=== PATIENT | female | born 1985 | race Caucasian/White ===

== ENCOUNTER → 2016-06-17 | Outpatient (CLI) | payer OTHER | LOC: FIMAGING 13:12 | PROVIDERS: ATTEND Obstetrics & Gynecology | DX: Z34.81 Encounter for supervision of other normal pregnancy, first trimester (principal); Z3A.12 12 weeks gestation of pregnancy ==

== ENCOUNTER → 2016-08-06 | Outpatient (CLI) | payer OTHER | LOC: FIMAGING 07:39 | PROVIDERS: ATTEND Obstetrics & Gynecology | DX: Z36 Encounter for antenatal screening of mother (principal); Z3A.19 19 weeks gestation of pregnancy; O26.892 Other specified pregnancy related conditions, second trimester ==

== ENCOUNTER → 2016-10-17 | Outpatient (CLI) | payer OTHER | LOC: FIMAGING 08:40 | PROVIDERS: ATTEND Obstetrics & Gynecology | DX: Z34.83 Encounter for supervision of other normal pregnancy, third trimester (principal); Z3A.29 29 weeks gestation of pregnancy ==

== ENCOUNTER 2016-12-30 18:00 | Inpatient (IN) | payer OTHER ==
[2016-12-30] MEDS ORDERED: TERBUTALINE SULFATE 1 MG/ML VIAL IV PRN (18:29)
[2016-12-30] MEDS ORDERED: OLIVE OIL 118 ML BTL MISC PRN (18:29)
[2016-12-30] MEDS ORDERED: EPSOM SALT 454 GM TP PRN (18:29)
[2016-12-30] MEDS ORDERED: LR 1,000 ML IV PRN (18:29)
[2016-12-30] MEDS ORDERED: OXYTOCIN 20 UNIT in LR 1,000 ML IV PRN (18:29)
--- NOTE | 2016-12-30 18:35 | OBPROG ---
Labor Progress Note Assessment/Plan: Assessment: cat 2 fhr contractions q 2-3 minutes exam / cephalic active labor srom clear fluid before admit 1720 gbs negative requesting epidural for pain relief elevated bp dtrs 3+bilaterally no clonus Plan:epidural for pain relief. admit for labor 12/30/16 18:31 12/30/16 18:36 Subjective/Intrapartum Course: 12/30/16 18:31 Feeling contractions irregularly. ROM 1720 clear fluid. Exam cephalic. - SVE Dilation (cm): 7 Effacement (%): 80 Station: -1 Membranes: SROM Amniotic Fluid Color: Clear - Contraction Pattern Assessment Current Contraction Pattern: Regular - FHR Assessment Verduzco FHR (bpm): 150 FHR Pattern Variability: Moderate FHR Category: 2 - AP Antepartum Course: transfer of care at 27 weeks. GBS negative. previa that has resolved. 12/30/16 18:33 Feeling contractions now. SROM clear fluid 1720. Feeling regular contractions now after rom. - Physical Exam General Appearance: WD/WN, alert, no apparent distress Respiratory: chest non-tender, lungs clear, normal breath sounds Cardiac/Chest: regular rate, rhythm Abdomen: normal bowel sounds Extremities: normal range of motion, Tabitha's sign (negative bilaterally) DTR- Lower Extremities: Knee (R): 3+, Knee (L): 3+ (no clonus) Skin: normal color, warm/dry Neuro/Psych: no motor/sensory deficits, alert, normal mood/affect, oriented x 3 ICD10 Worksheet Patient Problems: Problems Problem Status Onset term srom labor Acute
[2016-12-30] MEDS ORDERED: LIDOCAINE 1% 300 MG/30 ML SDV ONE (18:39)
[2016-12-30] MEDS ORDERED: OLIVE OIL 118 ML BTL ONE (18:39)
[2016-12-30] MEDS ORDERED: AMMONIA AROMATIC 1 EACH AMP IH ONE (18:39)
[2016-12-30] MEDS ORDERED: TERBUTALINE SULFATE 1 MG/ML VIAL ONE (18:39)
[2016-12-30] MEDS ORDERED: OXYTOCIN 10 UNIT/ML VIAL ONE (18:40)
[2016-12-30] MEDS ORDERED: MISOPROSTOL 200 MCG TAB ONE (18:40)
[2016-12-30 18:50] LABS: PLATELET COUNT 256 10^3/uL (150-400)
[2016-12-30] MEDS ORDERED: fentaNYL 2MCG/ML/BUP 0.1% RTU 100 ML BAG EP ONE (19:12)
[2016-12-30] MEDS ORDERED: PHENYLEPHRINE HCL 100 MCG/ML SYR ONE (19:12)
--- NOTE | 2016-12-30 19:15 | GHP ---
[f rep st] HISTORY AND PHYSICAL DATE OF ADMISSION: 12/30/2016 HISTORY OF PRESENT ILLNESS: Patient is a 2, para 1, 31-year-old, with an EDC of 12/27/2016, with a gestational age of 40 and 3/7 weeks, who comes in with complaint of irregular contractions and then spontaneous rupture of membranes at 1720 with clear fluid. PLAN: Admit. Patient is 7 cm, 80% effaced, -1 station. Cephalic presentation. The patient [place] of care at 27 and 6/[place] [facility] [place]ST MEDICAL HISTORY: Benign. Previous history of viral meningitis. History of a cold sore in 2014 . PAST SURGICAL HISTORY: [place] teeth. Right shoulder nevus. History of a stress fracture of the rig ht ankle in 2010. PREVIOUS HISTORY: In 2014, a male at 6 pounds 14 ounces, 38 weeks, 8 hours of labor, vagin al delivery, epidural, avulsed cord, history of PUPPS with that , delivered at [facility], son with hypospadias. PRESENT HISTORY: Previa at 19 weeks, which has since resolved. SOCIAL HISTORY: Patient is . Denies tobacco history. Denies drug history. GYNECOLOGICAL HISTORY: Previous OCP use. Abnormal Pap in 2006 with a colposcopy. Re-paps since hav e all been negative. REVIEW OF SYSTEMS: Times 8 is benign. PHYSICAL EXAMINATION: GENERAL: Patient is awake, alert, oriented x3. LUNGS: Clear bilaterally. A BDOMEN: Bowel sounds are positive in all 4 quadrants. EXTREMITIES: DTRs are 3+ bilaterally with no clonus. Homans sign is negative bilaterally. Denies PIH symptoms. LABORATORY DATA: Patient is O positive, antibody negative, RPR is nonreactive, rubella is immune. H epatitis is negative. HIV is negative. Trio screen cystic fibrosis was negative. Varicella was neg ative. Pap gonorrhea and chlamydia were negative. AFP single was negative. Innatal was negative. One-hour GTT was within normal limits. Patient has not been anemic with the . PLAN OF CARE: 1. GBS negative. 2. Epidural for pain relief at patient's request. 3. Expectant management of labor. 4. Consult Dr. Elizabeth William on plan of care. /[id number]/MODL
--- NOTE | 2016-12-30 19:15 | GHP ---
[f rep st] HISTORY AND PHYSICAL DATE OF ADMISSION: 12/30/2016 HISTORY OF PRESENT ILLNESS: Patient is a 2, para 1, 31-year-old, with an EDC of 12/27/2016, with a gestational age of 40 and 3/7 weeks, who comes in with complaint of irregular contractions and then spontaneous rupture of membranes at 1720 with clear fluid. PLAN: Admit. Patient is 7 cm, 80% effaced, -1 station. Cephalic presentation. The patient is a transfer of care at 27 and 6/7 weeks [place] [facility] [place] PAST MEDICAL HISTORY: Benign. Previous history of viral meningitis. History of a cold sore in 2014 . PAST SURGICAL HISTORY: [place] teeth. Right shoulder nevus. History of a stress fracture of the rig ht ankle in 2010. PREVIOUS HISTORY: In 2014, a male at 6 pounds 14 ounces, 38 weeks, 8 hours of labor, vagin al delivery, epidural, avulsed cord, history of PUPPS with that , delivered at [facility], son with hypospadias. PRESENT HISTORY: Previa at 19 weeks, which has since resolved. SOCIAL HISTORY: Patient is . Denies tobacco history. Denies drug history. GYNECOLOGICAL HISTORY: Previous OCP use. Abnormal Pap in 2006 with a colposcopy. Re-paps since hav e all been negative. REVIEW OF SYSTEMS: Times 8 is benign. PHYSICAL EXAMINATION: GENERAL: Patient is awake, alert, oriented x3. LUNGS: Clear bilaterally. A BDOMEN: Bowel sounds are positive in all 4 quadrants. EXTREMITIES: DTRs are 3+ bilaterally with no clonus. Homans sign is negative bilaterally. Denies PIH symptoms. LABORATORY DATA: Patient is O positive, antibody negative, RPR is nonreactive, rubella is immune. H epatitis is negative. HIV is negative. Trio screen cystic fibrosis was negative. Varicella was neg ative. Pap gonorrhea and chlamydia were negative. AFP single was negative. Innatal was negative. One-hour GTT was within normal limits. Patient has not been anemic with the . PLAN OF CARE: 1. GBS negative. 2. Epidural for pain relief at patient's request. 3. Expectant management of labor. 4. Consult Dr. Elizabeth William on plan of care. /[id number]/MODL
[2016-12-30] MEDS ORDERED: PHENYLEPHRINE HCL 100 MCG/ML SYR IVP PRN (19:43)
--- NOTE | 2016-12-30 19:43 | PREANESOB ---
Obstetric Pre-Anesthesia Info - General Info Proposed Procedure: STIVEN - Info Status: Full Term, Verduzco Monitors: External FHR Pattern: Reassuring - Labor Status Cervical Dilation per last OB SVE: 7 Station per last OB SVE: -1 Amniotic Fluid Color: Clear PIH: No Magnesium Sulfate in Use: No Indications for Labor Analgesia: Pain Control Labor Epidural: Proposed Anesthesia Allergies/Adverse Reactions: Allergy/AdvReac Type Severity Reaction Status Date / Time No Known Allergies Allergy Unverified 12/30/16 18:29 Visit Medications: Generic Name Dose Route Start Last Admin Trade Name Frejamie PRN Reason Stop Dose Admin Lactated Ringer's 1,000 mls @ 0 mls/hr 12/30/16 18:29 Lr IV 06/28/17 18:28 PRN PRN SEE PROTOCOL CONDITIONS Protocol Per Protocol Oxytocin 20 unit/ Lactated 1,002 mls @ 150 mls/hr 12/30/16 18:29 Ringer's IV PRN PRN Post- bleeding Ibuprofen 600 mg 12/30/16 18:29 Motrin PO 06/28/17 18:28 Q6HRS PRN post , inflammation Magnesium Sulfate 454 gm 12/30/16 18:29 Epsom Salt TP 06/28/17 18:28 Q1H PRN perineal discomfort [place] Oil 118 ml 12/30/16 18:29 Sweet Oil MISC 06/28/17 18:28 ONCE PRN perineal massage Terbutaline Sulfate 0.25 mg 12/30/16 18:29 Brethine IV 06/28/17 18:28 ONCE PRN Tachysystole Discontinued Medications Generic Name Dose Route Start Last Admin Trade Name Domonique PRN Reason Stop Dose Admin Ammonia (Aromatic Spirit) Confirm 12/30/16 18:39 Ammonia Aromatic Administered 12/30/16 18:40 Dose 1 each IH .STK-MED ONE Fentanyl/Bupivacaine HCl Confirm 12/30/16 19:12 Fentanyl/Bupivacaine/Ns 2 Mcg/Ml 0.1% (Premix Administered 12/30/16 19:13 Dose 100 ml EP .STK-MED ONE Lidocaine HCl Confirm 12/30/16 18:39 Lidocaine Hcl 1% Administered 12/30/16 18:40 Dose 300 mg .ROUTE .STK-MED ONE Misoprostol Confirm 12/30/16 18:40 Cytotec Administered 12/30/16 18:41 Dose 800 mcg .ROUTE .STK-MED ONE [place] Oil Confirm 12/30/16 18:39 Sweet Oil Administered 12/30/16 18:40 Dose 118 ml .ROUTE .STK-MED ONE Oxytocin Confirm 12/30/16 18:40 Pitocin Administered 12/30/16 18:41 Dose 40 unit .ROUTE .STK-MED ONE Phenylephrine HCl Confirm 12/30/16 19:12 Neosynephrine Administered 12/30/16 19:13 Dose 1,000 mcg .ROUTE .STK-MED ONE Terbutaline Sulfate Confirm 12/30/16 18:39 Brethine Administered 12/30/16 18:40 Dose 1 mg .ROUTE .STK-MED ONE Labs: 12/30/16 18:40 12/30/16 18:40 Patient ABO/Rh O POSITIVE 12/30/16 18:40 Uric Acid 5.8 mg/dL (2.5-6.8) 12/30/16 18:40 Total Bilirubin 0.3 mg/dL (0.1-1.4) 12/30/16 18:40 Conjugated Bilirubin 0.1 mg/dL (0.0-0.5) 12/30/16 18:40 Unconjugated Bilirubin 0.2 mg/dL (0.0-1.1) 12/30/16 18:40 AST 31 IU/L (14-46) 12/30/16 18:40 ALT 39 IU/L (9-52) 12/30/16 18:40 Lactate Dehydrogenase 472 IU/L (313-618) 12/30/16 18:40
--- NOTE | 2016-12-30 19:56 | OBPROG ---
Labor Progress Note Assessment/Plan: Assessment: cat 2 fhr contractions q 2-3 minutes exam 7/100/-1 cephalic/ thinned cervix minimal change in exam active labor srom clear fluid before admit 1720 gbs negative epidural in place for pain relief, denies pain after placement elevated bp pih labs wnl Plan:expectant management of labor. continue epidural for pain relief 12/30/16 18:31 12/30/16 18:36 12/30/16 19:54 Subjective/Intrapartum Course: 12/30/16 18:31 Feeling contractions irregularly. ROM 1720 clear fluid. Exam 80/-1 cephalic. 12/30/16 19:53 Feeling better after the epidural. Denies pain. Continuing to leak clear fluid vaginally Objective: 12/30/16 18:40 12/30/16 18:40 Patient ABO/Rh O POSITIVE 12/30/16 18:40 Uric Acid 5.8 mg/dL (2.5-6.8) 12/30/16 18:40 Total Bilirubin 0.3 mg/dL (0.1-1.4) 12/30/16 18:40 Conjugated Bilirubin 0.1 mg/dL (0.0-0.5) 12/30/16 18:40 Unconjugated Bilirubin 0.2 mg/dL (0.0-1.1) 12/30/16 18:40 AST 31 IU/L (14-46) 12/30/16 18:40 ALT 39 IU/L (9-52) 12/30/16 18:40 Lactate Dehydrogenase 472 IU/L (313-618) 12/30/16 18:40 - SVE Dilation (cm): 7 Effacement (%): 100 Station: -1 Membranes: SROM Amniotic Fluid Color: Clear - Contraction Pattern Assessment Current Contraction Pattern: Regular - AP Antepartum Course: transfer of care at 27 weeks. GBS negative. previa that has resolved. 12/30/16 18:33 Feeling contractions now. SROM clear fluid 1720. Feeling regular contractions now after rom. Oxytocin Orders Assessment - Pre-Induction/Augmentation Assessment Gestational Age: 40 week(s) and 3 day(s) ICD10 Worksheet Patient Problems: Problems Problem Status Onset term srom labor Acute
--- NOTE | 2016-12-30 19:58 | POSTANESTH ---
Post Anesthetic Evaluation Cardiovascular Status: Normal, Stable, Similar to Pre-Op Cond Respiratory Status: Normal, Stable, Similar to Pre-op Cond. Level of Consciousness/Mental Status: Can Participate in Eval, Alert and Oriented Pain Control: Adequate, Prn Tx Ordered Nausea/Vomiting Control: Adequate, Prn Tx Ordered Complications Possibly Related to Anesthesia: None Noted (Excellent analgesia.)
[2016-12-30] MEDS ORDERED: LR 500 ML IV SCH (20:00)
[2016-12-30] MEDS ORDERED: fentaNYL 2MCG/ML/BUP 0.1% RTU 100 ML EP SCH (20:00)
--- NOTE | 2016-12-30 22:05 | OBPROG ---
Labor Progress Note Assessment/Plan: Assessment: cat 2 fhr contractions q 2-3 minutes exam 100/-1 cephalic/ thinned cervix minimal change in exam active labor srom clear fluid before admit 1720 gbs negative epidural in place for pain relief, denies pain after placement iupc placed minimal change in exam per nurse exam Plan:evaluate strength of contractions with iupc need for pitocin possible to assist with strength of the contractions 12/30/16 18:31 12/30/16 18:36 12/30/16 19:54 12/30/16 22:03 Subjective/Intrapartum Course: 12/30/16 18:31 Feeling contractions irregularly. ROM 1720 clear fluid. Exam /-1 cephalic. 12/30/16 19:53 Feeling better after the epidural. Denies pain. Continuing to leak clear fluid vaginally 12/30/16 22:05 Comfortable with epidural. Objective: 12/30/16 18:40 12/30/16 18:40 Patient ABO/Rh O POSITIVE 12/30/16 18:40 Uric Acid 5.8 mg/dL (2.5-6.8) 12/30/16 18:40 Total Bilirubin 0.3 mg/dL (0.1-1.4) 12/30/16 18:40 Conjugated Bilirubin 0.1 mg/dL (0.0-0.5) 12/30/16 18:40 Unconjugated Bilirubin 0.2 mg/dL (0.0-1.1) 12/30/16 18:40 AST 31 IU/L (14-46) 12/30/16 18:40 ALT 39 IU/L (9-52) 12/30/16 18:40 Lactate Dehydrogenase 472 IU/L (313-618) 12/30/16 18:40 - SVE Dilation (cm): 7 Effacement (%): 100 Station: -1 Membranes: SROM Amniotic Fluid Color: Clear - Contraction Pattern Assessment Current Contraction Pattern: Regular - FHR Assessment Verduzco FHR (bpm): 135 FHR Pattern Variability: Moderate FHR Category: 2 - AP Antepartum Course: transfer of care at 27 weeks. GBS negative. previa that has resolved. 12/30/16 18:33 Feeling contractions now. SROM clear fluid 1720. Feeling regular contractions now after rom. Oxytocin Orders Assessment - Pre-Induction/Augmentation Assessment Gestational Age: 40 week(s) and 3 day(s) ICD10 Worksheet Patient Problems: Problems Problem Status Onset term srom labor Acute
[2016-12-30] MEDS ORDERED: OXYTOCIN 30 UNITS in LR 500 ML IV SCH (22:30)
--- NOTE | 2016-12-30 23:53 | OBPROG ---
Labor Progress Note Assessment/Plan: Assessment: cat 2 fhr variables pitocin off change in position from sitting to side lying to right side with peanut in plce to assist with descent of head tachysystole with pitocin/ pitocin off exam ant lip/100/0 cephalic good change in cervix transition continued clear fluid gbs negative good relief with epidural inadequete contractions however good change in cervical dilation Plan:expectant management of labor recheck with pressure 12/30/16 18:31 12/30/16 18:36 12/30/16 19:54 12/30/16 22:03 12/30/16 23:50 Subjective/Intrapartum Course: 12/30/16 18:31 Feeling contractions irregularly. ROM 1720 clear fluid. Exam /-1 cephalic. 12/30/16 19:53 Feeling better after the epidural. Denies pain. Continuing to leak clear fluid vaginally 12/30/16 22:05 Comfortable with epidural. 12/30/16 23:50 Comfortable denies pain Objective: 12/30/16 18:40 12/30/16 18:40 Patient ABO/Rh O POSITIVE 12/30/16 18:40 Uric Acid 5.8 mg/dL (2.5-6.8) 12/30/16 18:40 Total Bilirubin 0.3 mg/dL (0.1-1.4) 12/30/16 18:40 Conjugated Bilirubin 0.1 mg/dL (0.0-0.5) 12/30/16 18:40 Unconjugated Bilirubin 0.2 mg/dL (0.0-1.1) 12/30/16 18:40 AST 31 IU/L (14-46) 12/30/16 18:40 ALT 39 IU/L (9-52) 12/30/16 18:40 Lactate Dehydrogenase 472 IU/L (313-618) 12/30/16 18:40 - SVE Dilation (cm): 9 Effacement (%): 100 Station: 0 Membranes: SROM Amniotic Fluid Color: Clear - Contraction Pattern Assessment Current Contraction Pattern: Regular - FHR Assessment Verduzco FHR (bpm): 120 FHR Pattern Variability: Moderate FHR Category: 2 - AP Antepartum Course: transfer of care at 27 weeks. GBS negative. previa that has resolved. 12/30/16 18:33 Feeling contractions now. SROM clear fluid 1720. Feeling regular contractions now after rom. Oxytocin Orders Assessment - Pre-Induction/Augmentation Assessment Gestational Age: 40 week(s) and 3 day(s) ICD10 Worksheet Patient Problems: Problems Problem Status Onset term srom labor Acute
--- NOTE | 2016-12-31 01:21 | OBPROG ---
Labor Progress Note Assessment/Plan: Assessment: cat 2 fhr exam ant lip/100/0/ +1 cephalic OP transition continued clear fluid + bloody show gbs negative feeling pain in patients left side q2 minute contractions hands and knees to assist with rotation and descent of head Plan:expectant management of labor recheck with pressure 12/30/16 18:31 12/30/16 18:36 12/30/16 19:54 12/30/16 22:03 12/30/16 23:50 12/31/16 01:17 Subjective/Intrapartum Course: 12/30/16 18:31 Feeling contractions irregularly. ROM 1720 clear fluid. Exam /-1 cephalic. 12/30/16 19:53 Feeling better after the epidural. Denies pain. Continuing to leak clear fluid vaginally 12/30/16 22:05 Comfortable with epidural. 12/30/16 23:50 Comfortable denies pain 12/31/16 01:19 Feeling pain with the epidural now./rotated to hands and knees to assist with pain relief, rotation and descent. Patient felt better in this position Objective: 12/30/16 18:40 12/30/16 18:40 Patient ABO/Rh O POSITIVE 12/30/16 18:40 Uric Acid 5.8 mg/dL (2.5-6.8) 12/30/16 18:40 Total Bilirubin 0.3 mg/dL (0.1-1.4) 12/30/16 18:40 Conjugated Bilirubin 0.1 mg/dL (0.0-0.5) 12/30/16 18:40 Unconjugated Bilirubin 0.2 mg/dL (0.0-1.1) 12/30/16 18:40 AST 31 IU/L (14-46) 12/30/16 18:40 ALT 39 IU/L (9-52) 12/30/16 18:40 Lactate Dehydrogenase 472 IU/L (313-618) 12/30/16 18:40 - SVE Dilation (cm): 9 Effacement (%): 100 Station: 0, +1 Membranes: SROM Amniotic Fluid Color: Clear - Contraction Pattern Assessment Current Contraction Pattern: Regular - FHR Assessment Verduzco FHR (bpm): 135 FHR Pattern Variability: Moderate FHR Category: 2 - AP Antepartum Course: transfer of care at 27 weeks. GBS negative. previa that has resolved. 12/30/16 18:33 Feeling contractions now. SROM clear fluid 1720. Feeling regular contractions now after rom. Oxytocin Orders Assessment - Pre-Induction/Augmentation Assessment Gestational Age: 40 week(s) and 3 day(s) ICD10 Worksheet Patient Problems: Problems Problem Status Onset term srom labor Acute
[2016-12-31] MEDS ORDERED: ACETAMINOPHEN 500 MG TAB PO ONE (01:56)
--- NOTE | 2016-12-31 01:56 | OBPROG ---
Labor Progress Note Assessment/Plan: Assessment: cat 2 fhr exam ant lip/100/0/ +1 cephalic OP transition + bloody show gbs negative feeling pain in patients left side q2 minute contractions rotated to bibi position attempt to push variables with pushing minimal descent pitocin to 1 mu temp 100.7 will give tylenol 1 g po early decelerations noted Plan:expectant management of labor 12/30/16 18:31 12/30/16 18:36 12/30/16 19:54 12/30/16 22:03 12/30/16 23:50 12/31/16 01:17 12/31/16 01:53 12/31/16 01:56 Subjective/Intrapartum Course: 12/30/16 18:31 Feeling contractions irregularly. ROM 1720 clear fluid. Exam /-1 cephalic. 12/30/16 19:53 Feeling better after the epidural. Denies pain. Continuing to leak clear fluid vaginally 12/30/16 22:05 Comfortable with epidural. 12/30/16 23:50 Comfortable denies pain 12/31/16 01:19 Feeling pain with the epidural now./rotated to hands and knees to assist with pain relief, rotation and descent. Patient felt better in this position 12/31/16 01:55 continued feeling of pressure pain on left lower abdomen Objective: 12/30/16 18:40 12/30/16 18:40 Patient ABO/Rh O POSITIVE 12/30/16 18:40 Uric Acid 5.8 mg/dL (2.5-6.8) 12/30/16 18:40 Total Bilirubin 0.3 mg/dL (0.1-1.4) 12/30/16 18:40 Conjugated Bilirubin 0.1 mg/dL (0.0-0.5) 12/30/16 18:40 Unconjugated Bilirubin 0.2 mg/dL (0.0-1.1) 12/30/16 18:40 AST 31 IU/L (14-46) 12/30/16 18:40 ALT 39 IU/L (9-52) 12/30/16 18:40 Lactate Dehydrogenase 472 IU/L (313-618) 12/30/16 18:40 - SVE Membranes: SROM Amniotic Fluid Color: Clear - Contraction Pattern Assessment Current Contraction Pattern: Regular - FHR Assessment Verduzco FHR (bpm): 135 FHR Pattern Variability: Moderate FHR Category: 2 - AP Antepartum Course: transfer of care at 27 weeks. GBS negative. previa that has resolved. 12/30/16 18:33 Feeling contractions now. SROM clear fluid 1720. Feeling regular contractions now after rom. Oxytocin Orders Assessment - Pre-Induction/Augmentation Assessment Gestational Age: 40 week(s) and 3 day(s) ICD10 Worksheet Patient Problems: Problems Problem Status Onset term srom labor Acute
--- NOTE | 2016-12-31 02:23 | OBPROG ---
Labor Progress Note Assessment/Plan: Assessment: cat 2 fhr exam /+1 hands and knees laboring down + bloody show gbs negative feeling pain in patients left side q2 minute contractions pitocin to 1 mu temp 100.7 will give tylenol 1 g po pain on left side with epidural Plan:expectant management of labor 12/30/16 18:31 12/30/16 18:36 12/30/16 19:54 12/30/16 22:03 12/30/16 23:50 12/31/16 01:17 12/31/16 01:53 12/31/16 01:56 12/31/16 02:21 Subjective/Intrapartum Course: 12/30/16 18:31 Feeling contractions irregularly. ROM 1720 clear fluid. Exam /-1 cephalic. 12/30/16 19:53 Feeling better after the epidural. Denies pain. Continuing to leak clear fluid vaginally 12/30/16 22:05 Comfortable with epidural. 12/30/16 23:50 Comfortable denies pain 12/31/16 01:19 Feeling pain with the epidural now./rotated to hands and knees to assist with pain relief, rotation and descent. Patient felt better in this position 12/31/16 01:55 continued feeling of pressure pain on left lower abdomen 12/31/16 02:22 Doing well in hands and knees position, cat 2 fhr Objective: 12/30/16 18:40 12/30/16 18:40 Patient ABO/Rh O POSITIVE 12/30/16 18:40 Uric Acid 5.8 mg/dL (2.5-6.8) 12/30/16 18:40 Total Bilirubin 0.3 mg/dL (0.1-1.4) 12/30/16 18:40 Conjugated Bilirubin 0.1 mg/dL (0.0-0.5) 12/30/16 18:40 Unconjugated Bilirubin 0.2 mg/dL (0.0-1.1) 12/30/16 18:40 AST 31 IU/L (14-46) 12/30/16 18:40 ALT 39 IU/L (9-52) 12/30/16 18:40 Lactate Dehydrogenase 472 IU/L (313-618) 12/30/16 18:40 - SVE Membranes: SROM Amniotic Fluid Color: Clear - Contraction Pattern Assessment Current Contraction Pattern: Regular - FHR Assessment Verduzco FHR (bpm): 135 FHR Pattern Variability: Moderate FHR Category: 2 - AP Antepartum Course: transfer of care at 27 weeks. GBS negative. previa that has resolved. 12/30/16 18:33 Feeling contractions now. SROM clear fluid 1720. Feeling regular contractions now after rom. Oxytocin Orders Assessment - Pre-Induction/Augmentation Assessment Gestational Age: 40 week(s) and 3 day(s) ICD10 Worksheet Patient Problems: Problems Problem Status Onset term srom labor Acute
--- NOTE | 2016-12-31 04:30 | OBDEL ---
Info Type: Vaginal Presentation at Delivery: Vertex L&D Analgesia/Anesthesia Type: Epidural GBS+: No Intrapartum Medications: Discontinued Medications Generic Name Dose Route Start Last Admin Trade Name Domonique PRN Reason Stop Dose Admin Acetaminophen 1,000 mg 12/31/16 01:56 12/31/16 01:59 Tylenol PO 12/31/16 01:57 1,000 mg ONCE ONE Administration - Hospital Course Intrapartum: 12/30/16 18:31 Feeling contractions irregularly. ROM 1720 clear fluid. Exam /-1 cephalic. 12/30/16 19:53 Feeling better after the epidural. Denies pain. Continuing to leak clear fluid vaginally 12/30/16 22:05 Comfortable with epidural. 12/30/16 23:50 Comfortable denies pain 12/31/16 01:19 Feeling pain with the epidural now./rotated to hands and knees to assist with pain relief, rotation and descent. Patient felt better in this position 12/31/16 01:55 continued feeling of pressure pain on left lower abdomen 12/31/16 02:22 Doing well in hands and knees position, cat 2 fhr Indications for Delivery: Spontaneous Labor, SROM Vaginal Delivery - Delivery Provider Delivery Physician/CNM: Frieda Ontiveros Proctoring Provider: Elizabeth William - Labor and Delivery Onset of Contractions Date: 12/30/16 Onset of Contractions Time: 17:30 Onset of Contractions Type: Augmented Rupture of Membranes Date: 12/30/16 Rupture of Membranes Time: 17:20 Amniotic Fluid Color: Clear Dilation Complete Date: 12/31/16 Dilation Complete Time: 02:20 Placenta Delivery Date: 12/31/16 Placenta Delivery Time: 04:17 Total Hours of Labor: 10 Laceration: 2nd Degree Repair: 3-0, Vicryl Vaginal Sponge Count Correct: Yes Vaginal Needle Count Correct: Yes Vaginal Sweep Performed: No EBL: 400 Delivery Events: Nuchal Cord, Shoulder Dystocia - Medications Labor Augmentation/Induction Methods Used: Pitocin Labor Augmentation/Induction Indication: Contraction Strength Inadequate [place] Data Verduzco Delivery Date: 12/31/16 Delivery Time: 03:54 ABBIE: 12/27/16 Gestational Age: 40 week(s) and 4 day(s) Sex of Infant: Male Score (1 Min): 8 Score (5 Min): 9 Shoulder Dystocia Time Head Delivered: 03:53 Time Body Delivered: 03:54 1st Maneuver Attempted Maneuvers: Aileen 2nd Maneuver Attempted Maneuvers: Dixon's Maneuver 3rd Maneuver Attempted Maneuvers: Suprapubic Pressure ICD10 Worksheet Patient Problems: Problems Problem Status Onset term srom labor Acute
[2016-12-31] MEDS ORDERED: SIMETHICONE 80 MG TAB CHEW PO PRN (04:32)
[2016-12-31] MEDS ORDERED: HYDROCODONE/APAP 5/325 TAB PO PRN (04:32)
[2016-12-31] MEDS ORDERED: HYDROCORTISONE 0.5% CREAM TP PRN (04:32)
[2016-12-31] MEDS ORDERED: ACETAMINOPHEN 325 MG TAB PO PRN (04:32)
--- NOTE | 2016-12-31 04:36 | OBGCSDC ---
General Delivery Information - General Info : 2 Para: 1 Abortions: 0 Type: Vaginal L&D Analgesia/Anesthesia Type: Epidural Admission Date: 12/30/16 Labs: Patient ABO/Rh O POSITIVE 12/30/16 18:40 Hct 35.9 % (38.0-47.0) L 12/30/16 18:40 - Hospital Course Antepartum: transfer of care at 27 weeks. GBS negative. previa that has resolved. 12/30/16 18:33 Feeling contractions now. SROM clear fluid 1720. Feeling regular contractions now after rom. Intrapartum: ga 40/4 spontaneous labor srom clear fluid augmentation with pitocin op to oa epidural for pain relief. vaginal laceration 2 degree perineal laceration 400cc ebl with assistance 12/30/16 18:31 Feeling contractions irregularly. ROM 1720 clear fluid. Exam 780/-1 cephalic. 12/30/16 19:53 Feeling better after the epidural. Denies pain. Continuing to leak clear fluid vaginally 12/30/16 22:05 Comfortable with epidural. 12/30/16 23:50 Comfortable denies pain 12/31/16 01:19 Feeling pain with the epidural now./rotated to hands and knees to assist with pain relief, rotation and descent. Patient felt better in this position 12/31/16 01:55 continued feeling of pressure pain on left lower abdomen 12/31/16 02:22 Doing well in hands and knees position, cat 2 fhr 12/31/16 04:34 Vaginal - Delivery Provider Delivery Physician/CNM: Frieda Ontiveros - Diagnosis Labor: Augmented Amniotic Fluid Color: Clear Laceration: 2nd Degree Repair: 3-0, Vicryl Delivery Events: Nuchal Cord, Shoulder Dystocia - Delivery EBL: 400 Data [employer] Delivery Date: 12/31/16 Delivery Time: 03:54 ABBIE: 12/27/16 Gestational Age: 40 week(s) and 4 day(s) Sex of : Male Score (1 Min): 8 Score (5 Min): 9
[2016-12-31] MEDS: IBUPROFEN 600 MG TAB PO PRN ×3 (05:37→18:09)
[2016-12-31] MEDS: DOCUSATE SODIUM 100 MG CAP PO PRN (10:15)
--- NOTE | 2016-12-31 10:16 | OBPP ---
Progress Note Assessment/Plan: Assessment: 31 y/o PPD 0 s/p doing well. Plan: Bifera QD secondary to mild anemia. support, baby is Ramila positive. Routine PPC. 12/31/16 10:15 Subjective/ Course: 12/31/16 10:13 Pt is doing well today. She has min perineal pain and cramping controlled with Ibuprofen. Min lochia, ambulating and voiding without difficulty and has min lochia. Baby is doing well, has a good latch. Objective: 12/30/16 18:40 12/30/16 18:40 Patient ABO/Rh O POSITIVE 12/30/16 18:40 Uric Acid 5.8 mg/dL (2.5-6.8) 12/30/16 18:40 Total Bilirubin 0.3 mg/dL (0.1-1.4) 12/30/16 18:40 Conjugated Bilirubin 0.1 mg/dL (0.0-0.5) 12/30/16 18:40 Unconjugated Bilirubin 0.2 mg/dL (0.0-1.1) 12/30/16 18:40 AST 31 IU/L (14-46) 12/30/16 18:40 ALT 39 IU/L (9-52) 12/30/16 18:40 Lactate Dehydrogenase 472 IU/L (313-618) 12/30/16 18:40 Temp Pulse Resp BP Pulse Ox 36.1 C 86 20 116/68 96 12/31/16 08:00 12/31/16 08:00 12/31/16 08:00 12/31/16 08:00 12/31/16 08:00 Uterine Position/Fundal Height: Umbilicus -2 Uterine Tone: Firm Physical Exam - Physical Exam Neck: non-tender, full range of motion, supple Respiratory: chest non-tender, lungs clear, normal breath sounds Cardiac/Chest: regular rate, rhythm Abdomen: normal bowel sounds Extremities: swelling (no), Tabitha's sign (neg)
[2016-12-31] MEDS: IRON POLYSAC/IRON HEME 28 MG TAB PO SCH (11:06)
[2016-12-31 20:05] VITALS: RESP 18
[2017-01-01] MEDS: IBUPROFEN 600 MG TAB PO PRN ×2 (04:07→10:55)
[2017-01-01 08:25] VITALS: BP 125/76; PULSE 96; TEMP 97.3; O2SAT 96
[2017-01-01] MEDS: IRON POLYSAC/IRON HEME 28 MG TAB PO SCH (08:33)
[2017-01-01] MEDS: DOCUSATE SODIUM 100 MG CAP PO PRN (10:55)
--- NOTE | 2017-01-01 12:59 | OBPP ---
Progress Note Assessment/Plan: Assessment: 31 yo WF PPD#1 s/p . Desires DC home today. Plan: Discharge home. 01/01/17 12:56 Subjective/ Course: 12/31/16 10:13 Pt is doing well today. She has min perineal pain and cramping controlled with Ibuprofen. Min lochia, ambulating and voiding without difficulty and has min lochia. Baby is doing well, has a good latch. 01/01/17 12:57 Patient is doing well. Reports minimal lochia. . Voiding without difficulty. Denies significant pain or faintness or weakness. Desires DC home today if possible. Exam: NAD Lungs Clear Abdomen soft FF and below umbilicus Extremities: no excessive edema Objective: 01/01/17 04:10 12/30/16 18:40 Patient ABO/Rh O POSITIVE 12/30/16 18:40 Uric Acid 5.8 mg/dL (2.5-6.8) 12/30/16 18:40 Total Bilirubin 0.3 mg/dL (0.1-1.4) 12/30/16 18:40 Conjugated Bilirubin 0.1 mg/dL (0.0-0.5) 12/30/16 18:40 Unconjugated Bilirubin 0.2 mg/dL (0.0-1.1) 12/30/16 18:40 AST 31 IU/L (14-46) 12/30/16 18:40 ALT 39 IU/L (9-52) 12/30/16 18:40 Lactate Dehydrogenase 472 IU/L (313-618) 12/30/16 18:40 Temp Pulse Resp BP Pulse Ox 36.3 C 96 18 125/76 H 96 01/01/17 08:23 01/01/17 08:23 01/01/17 08:23 01/01/17 08:23 01/01/17 08:23 Exam: NAD Lungs Clear Abdomen soft FF and below umbilicus Extremities: no excessive edema Uterine Position/Fundal Height: Umbilicus -2 Uterine Tone: Firm
--- NOTE | 2017-01-01 12:59 | OBGCSDC ---
General Delivery Information - General Info : 2 Para: 2 Abortions: 0 Type: Vaginal L&D Analgesia/Anesthesia Type: Epidural Admission Date: 12/30/16 Labs: Patient ABO/Rh O POSITIVE 12/30/16 18:40 Hct 30.7 % (38.0-47.0) L 01/01/17 04:10 - Hospital Course Antepartum: transfer of care at 27 weeks. GBS negative. previa that has resolved. 12/30/16 18:33 Feeling contractions now. SROM clear fluid 1720. Feeling regular contractions now after rom. Intrapartum: ga 40/4 spontaneous labor srom clear fluid augmentation with pitocin op to oa epidural for pain relief. vaginal laceration 2 degree perineal laceration 400cc ebl with assistance 12/30/16 18:31 Feeling contractions irregularly. ROM 1720 clear fluid. Exam /- cephalic. 12/30/16 19:53 Feeling better after the epidural. Denies pain. Continuing to leak clear fluid vaginally 12/30/16 22:05 Comfortable with epidural. 12/30/16 23:50 Comfortable denies pain 12/31/16 01:19 Feeling pain with the epidural now./rotated to hands and knees to assist with pain relief, rotation and descent. Patient felt better in this position 12/31/16 01:55 continued feeling of pressure pain on left lower abdomen 12/31/16 02:22 Doing well in hands and knees position, cat 2 fhr 12/31/16 04:34 : 12/31/16 10:13 Pt is doing well today. She has min perineal pain and cramping controlled with Ibuprofen. Min lochia, ambulating and voiding without difficulty and has min lochia. Baby is doing well, has a good latch. 01/01/17 12:57 Patient is doing well. Reports minimal lochia. . Voiding without difficulty. Denies significant pain or faintness or weakness. Desires DC home today if possible. Exam: NAD Lungs Clear Abdomen soft FF and below umbilicus Extremities: no excessive edema Vaginal - Delivery Provider Delivery Physician/CNM: Frieda Ontiveros - Diagnosis Labor: Augmented Amniotic Fluid Color: Clear Laceration: 2nd Degree Repair: 3-0, Vicryl Delivery Events: Nuchal Cord, Shoulder Dystocia - Delivery EBL: [address] [place] Data [employer] Delivery Date: 12/31/16 Delivery Time: 03:54 ABBIE: 12/27/16 Gestational Age: 40 week(s) and 5 day(s) Sex of Infant: Male Weight (gm): 4036 g Score (1 Min): 6 Score (5 Min): 9 Discharge Information - Discharge Information Condition: Good Instruction/Follow Up: Four Weeks, Six Weeks
== END 2017-01-01 13:59 | disposition home or self-care (01) | DRG 775 ==
LOC: OBSVTOIN 18:00 → FLD 18:00 → FOB 12-31 05:59
PROVIDERS: ADMIT Advanced Practice Midwife; ATTEND Obstetrics & Gynecology Gynecology
DX: O48.0 Post-term pregnancy (principal); O70.1 Second degree perineal laceration during delivery; O66.0 Obstructed labor due to shoulder dystocia; Z3A.40 40 weeks gestation of pregnancy; Z37.0 Single live birth
CPT/HCPCS: J2370; J2590; J3105